=== PATIENT | female | born 1965 | race American Indian/Alaskan Native ===

== ENCOUNTER 2017-01-06 12:14 | Emergency (ER) | payer SELFPAY ==
--- NOTE | 2017-01-06 16:22 | Emergency Department Report ---
HPI - General Chief Complaint: Skin/Abscess/Foreign Body Time Seen by Provider: 01/06/17 15:29 - HPI HPI: 51-year-old female presents today with multiple boils to her pulse ox 3 days. Positive for history of hidradenitis to pretty well and abscesses. Positive for drainage. Patient states that she has had multiple boils of her axillary region and buttocks, she is now complaining of hard boil of her right buttock. Positive for pain, rated as a 10 out of 10. Positive for pruritus. Patient states she is unable to sit properly due to pain. Patient had Surgery in the past without complete resolution. She states she needs to be put on antibiotics and wants a referral for surgeon. ED Past Medical Hx - Past Medical History Previous Medical History?: Yes Additional medical history: repeat boils - Surgical History Past Surgical History?: Yes Additional Surgical History: hysterctomy. x 1 - Social History Smoking Status: Current Every Day Smoker Substance Use Type: Alcohol - Medications Home Medications: Home Medications Medication Instructions Recorded Confirmed Last Taken Type Butalbit/Acetamin/Caff/Codeine 1 cap PO Q6HR PRN #20 cap 02/14/16 Unknown Rx [Fioricet/Codeine [id number]] predniSONE [Deltasone] 50 mg PO QDAY #5 tab 02/14/16 Unknown Rx Gabapentin [Neurontin] 300 mg PO BID #30 cap 02/20/16 Unknown Rx predniSONE [Deltasone] 50 mg PO QDAY #5 tab 02/20/16 Unknown Rx Acetaminophen/Codeine [Tylenol #3] 1 tab PO Q6H PRN #14 tab 01/06/17 Unknown Rx Cephalexin [Keflex] 500 mg PO Q6HR #28 capsule 01/06/17 Unknown Rx Sulfamethoxazole/Trimethoprim 1 each PO BID #14 tablet 01/06/17 Unknown Rx [Bactrim DS TAB] ED Review of Systems ROS: Stated complaint: SEVERAL SEVERE BOILS ON BUTTOCKS /PAIN Other details as noted in HPI Constitutional: denies: chills, fever, malaise Eyes: denies: eye pain ENT: denies: ear pain, throat pain, congestion Respiratory: denies: cough, shortness of breath, wheezing Cardiovascular: denies: chest pain, palpitations Endocrine: no symptoms reported Gastrointestinal: denies: abdominal pain, nausea, vomiting Neurological: denies: headache, weakness Physical Exam - Physical Exam Vital Signs: Vital Signs 01/06/17 12:20 Temperature 98.4 F Pulse Rate 76 Respiratory 18 Rate Blood Pressure 195/90 O2 Sat by Pulse 100 Oximetry Physical Exam: GENERAL: The patient is well-developed and well-nourished. Patient is in NAD. HEAD: Normocephalic. Atraumatic. CHEST/LUNGS: Clear to auscultation throughout. HEART/CARDIOVASCULAR: Regular rate and rhythm. No murmurs, rubs or gallops. ABDOMEN: Abdomen is soft, nontender. Bowel sounds normoactive. No guarding or rebound tenderness. EXTREMITIES: Peripheral pulses intact. Capillary refill less than 2 seconds. SKIN: 5 cm in diameter, tender to touch, indurated, nonfluctuant abscess noted over the right buttock. Positive for minimal drainage. NEURO: Alert and oriented x 3. Normal gait. ED Course Vital Signs 01/06/17 12:20 Temperature 98.4 F Pulse Rate 76 Respiratory 18 Rate Blood Pressure 195/90 O2 Sat by Pulse 100 Oximetry ED Medical Decision Making - Lab Data Vital Signs 01/06/17 01/06/17 12:20 16:30 Temperature 98.4 F Pulse Rate 76 65 Respiratory 18 18 Rate Blood Pressure 195/90 Blood Pressure 163/75 [Left] O2 Sat by Pulse 100 99 Oximetry - Medical Decision Making 51-year-old female presents today with an abscess to her buttock that is currently draining. Patient has been provided with a referral for surgeon. Patient is in no acute distress at this time. She will be discharged home and is encouraged to follow up with a primary care provider. She will be sent home on Bactrim, Keflex and Tylenol 3 and is encouraged to return to the emergency room for any worsening symptoms. Critical care attestation.: If time is entered above; I have spent that time in minutes in the direct care of this critically ill patient, excluding procedure time. ED Disposition Clinical Impression: Abscess of buttock Disposition: DISCHARGED TO HOME OR SELFCARE Is pt being admited?: No Does the pt Need Aspirin: No Condition: Stable Instructions: Abscess (ED) Additional Instructions: Follow-up with primary care provider and surgeon. Return to the emergency department if symptoms worsen. Prescriptions: Acetaminophen/Codeine [Tylenol #3] 1 tab PO Q6H PRN #14 tab PRN Reason: Pain Cephalexin [Keflex] 500 mg PO Q6HR #28 capsule Sulfamethoxazole/Trimethoprim [Bactrim DS TAB] 1 each PO BID #14 tablet Referrals: PRIMARY CAREMD [Primary Care Provider] - 3-5 Days LAYO RUFF MD [Staff Physician] - 3-5 Days [facility] [Outside] - 3-5 Days Forms: Work/School Release Form(ED) Time of Disposition: 16:32
[2017-01-06 16:31] VITALS: BP 163/75
== END 2017-01-06 16:53 | disposition home or self-care (01) ==
LOC: ED 12:14
DX: L02.31 Cutaneous abscess of buttock (principal); F17.200 Nicotine dependence, unspecified, uncomplicated
CPT/HCPCS: 99282

== ENCOUNTER 2017-01-30 12:13 | Emergency (ER) | payer SELFPAY ==
[2017-01-30 12:47] VITALS: BP 155/82
[2017-01-30] MEDS ORDERED: CLEOCIN IM ONE (15:43)
--- NOTE | 2017-01-30 15:51 | Emergency Department Report ---
ED General Adult HPI - General Chief complaint: Skin/Abscess/Foreign Body Stated complaint: BOILS ON BUTTOCKS Time Seen by Provider: 01/30/17 15:30 Source: patient Mode of arrival: Ambulatory Limitations: No Limitations - History of Present Illness Initial comments: PT comes into ED today asking for medication refill of Bactrim and Keflex. PT states she has a hx of Hidradenitis and the sores on her buttocks have been draining again. PT states when she took the antibiotics last month, the area dried up and was less painful. PT states that she is starting a new job on Thursday and after 90 days, she will have health insurance and be able to see a surgeon for further treatment. PT states she had surgery to both underarms about 10 years ago. MD Complaint: abscess -: Gradual, week(s) Location: buttocks Radiation: non-radiation Severity scale (0 -10): 10 Quality: constant Consistency: constant Improves with: medication (antibiotics ) Worsens with: movement, other (palpation ) Associated Symptoms: fever/chills, rash. denies: nausea/vomiting Treatments Prior to Arrival: NSAID - Related Data Previous Rx's Medication Instructions Recorded Last Taken Type Acetaminophen/Codeine [Tylenol #3] 1 tab PO Q6H PRN #12 tab 01/30/17 Unknown Rx Cephalexin [Keflex] 500 mg PO Q6HR #40 capsule 01/30/17 Unknown Rx Fluconazole [Diflucan TAB] 150 mg PO ONCE #1 tablet 01/30/17 Unknown Rx Sulfamethoxazole/Trimethoprim 1 each PO BID #20 tablet 01/30/17 Unknown Rx [Bactrim DS TAB] Allergies Allergy/AdvReac Type Severity Reaction Status Date / Time No Known Allergies Allergy Unverified 02/14/16 15:34 ED Review of Systems ROS: Stated complaint: BOILS ON BUTTOCKS Other details as noted in HPI Comment: All other systems reviewed and negative Constitutional: fever (subjective ). denies: chills Cardiovascular: denies: chest pain Gastrointestinal: denies: abdominal pain, nausea, vomiting Musculoskeletal: as per HPI Skin: as per HPI, rash, change in color (drainage ) ED Past Medical Hx - Past Medical History Previous Medical History?: No Additional medical history: repeat boils - Surgical History Past Surgical History?: Yes Additional Surgical History: hysterctomy. x 1 - Social History Smoking Status: Unknown if ever smoked Substance Use Type: None - Medications Home Medications: Home Medications Medication Instructions Recorded Confirmed Last Taken Type Acetaminophen/Codeine [Tylenol #3] 1 tab PO Q6H PRN #12 tab 01/30/17 Unknown Rx Cephalexin [Keflex] 500 mg PO Q6HR #40 capsule 01/30/17 Unknown Rx Fluconazole [Diflucan TAB] 150 mg PO ONCE #1 tablet 01/30/17 Unknown Rx Sulfamethoxazole/Trimethoprim 1 each PO BID #20 tablet 01/30/17 Unknown Rx [Bactrim DS TAB] ED Physical Exam - General Limitations: No Limitations General appearance: alert, in no apparent distress - Head Head exam: Present: atraumatic, normocephalic - Eye Eye exam: Present: normal appearance. Absent: conjunctival injection - ENT ENT exam: Present: normal exam, normal external ear exam - Neck Neck exam: Present: normal inspection, full ROM - Respiratory Respiratory exam: Present: normal lung sounds bilaterally. Absent: respiratory distress - Cardiovascular Cardiovascular Exam: Present: regular rate, normal rhythm - GI/Abdominal GI/Abdominal exam: Present: soft. Absent: tenderness - Extremities Exam Extremities exam: Present: normal inspection, full ROM - Back Exam Back exam: Present: normal inspection, full ROM. Absent: tenderness - Neurological Exam Neurological exam: Present: alert, oriented X3 - Psychiatric Psychiatric exam: Present: normal affect, normal mood - Skin Skin exam: Present: warm, dry, other (derick buttocks with hidradenitis R>L. If R buttocks is palpated, multiple sites will drain, drainage collected for wound culture ) ED Course Vital Signs 01/30/17 12:44 Temperature 98.3 F Pulse Rate 74 Respiratory 18 Rate Blood Pressure 155/82 O2 Sat by Pulse 95 Oximetry - Reevaluation(s) Reevaluation #1: 01/30/17 15:46 PT aware of plan of care. PT has no questions at this time. PT aware no driving or ETOH after taking tylenol #3. PT aware safe dose of Naprosyn to take. - Pulse Oximetry Interpretation Digit-Finger Initial Pulse Oximetry Readin Actions Taken: none ED Medical Decision Making - Differential Diagnosis abscess, cellulitis, hidradenitis Critical Care Time: No Critical care attestation.: If time is entered above; I have spent that time in minutes in the direct care of this critically ill patient, excluding procedure time. ED Disposition Clinical Impression: Hidradenitis Disposition: DISCHARGED TO HOME OR SELFCARE Is pt being admited?: No Does the pt Need Aspirin: No Condition: Stable Instructions: Cellulitis (ED), Abscess (ED) Additional Instructions: No driving or ETOH after Tylenol with Codeine Referrals: PRIMARY CAREMD [Primary Care Provider] - 3-5 Days FLAKITO STEVENSON MD [Staff Physician] - 3-5 Days Forms: Work/School Release Form(ED) Time of Disposition: 15:53
== END 2017-01-30 16:04 | disposition home or self-care (01) ==
LOC: ED 12:13
DX: L73.2 Hidradenitis suppurativa (principal); Z90.710 Acquired absence of both cervix and uterus
CPT/HCPCS: 87116; 96372

== ENCOUNTER 2017-12-07 17:24 | Emergency (ER) | payer OTHER ==
[2017-12-07 18:33] LABS: Basophils # (Auto) 0.1 K/mm3 (0.0-0.1); Basophils % (Auto) 0.8 % (0.0-1.8); Eosinophils # (Auto) 0.4 K/mm3 (0.0-0.4); Eosinophils % (Auto) 4.5 % (0.0-4.3); Hematocrit 39.7 % (30.3-42.9); Lymphocytes # (Auto) 4.3 K/mm3 (1.2-5.4); Lymphocytes % (Auto) 43.6 % (13.4-35.0); Mean Corpuscular HGB Conc 33 % (30-34); Mean Corpuscular Hemoglobin 31 pg (28-32); Mean Corpuscular Volume 94 fl (79-97); Monocytes # (Auto) 0.4 K/mm3 (0.0-0.8); Monocytes % (Auto) 4.3 % (0.0-7.3); Platelet Count 315 K/mm3 (140-440); Red Cell Distribution Width 13.7 % (13.2-15.2)
[2017-12-07 19:17] LABS: BUN/Creatinine Ratio 20; Blood Urea Nitrogen 12 mg/dL (7-17); Calcium 9.1 mg/dL (8.4-10.2); Hemolysis Index 81
[2017-12-07 20:50] VITALS: BP 178/74
[2017-12-07 21:02] LABS: Bacteria,Urine 1+ /HPF (Negative); Bilirubin,Urine NEG (Negative); Blood,Urine NEG (Negative); Color,Urine Yellow (Yellow); Mucus,Urine FEW /HPF; Nitrite,Urine NEG (Negative); Protein,Urine <15 mg/dL mg/dL (Negative)
--- NOTE | 2017-12-07 21:11 | Emergency Department Report ---
ED Recheck HPI - General Chief Complaint: High BP Stated Complaint: HIGH BP Time Seen by Provider: 12/07/17 21:01 Source: patient Mode of arrival: Ambulatory Limitations: No Limitations - History of Present Illness Initial Comments: This is a 52-year-old female nontoxic, well nourished in appearance, no acute signs of distress presents to the ED with c/o of high blood pressure. Patient stated she develops intermittent headaches and takes her blood pressure and is elevated. Patient denies history of high blood pressure. Patient currently in the ED denies any headaches or symptoms. Patient stated when she does develop headache it is a gradual onset and diffuse. Patient denies thunderclap headache or worst headache. Patient denies any blurry vision or visual changes. Patient stated she is asymptomatic. Patient denies any chest pain, shortness of breathe , fever, chills, headache, nausea, vomiting, numbness, tingling, abdominal pain. Patient denies any allergies. Denies significant PMH. MD Complaint: medication refill request Returns Today for: request for prescription Symptoms Since Prior Visit: no new symptoms Associated Symptoms: none. denies: fever, chills, chest pain, shortness of breath, rash, malaise, nasuea, abdominal pain - Related Data Previous Rx's Medication Instructions Recorded Last Taken Type Acetaminophen/Codeine [Tylenol #3] 1 tab PO Q6H PRN #12 tab 01/30/17 Unknown Rx Cephalexin [Keflex] 500 mg PO Q6HR #40 capsule 01/30/17 Unknown Rx Fluconazole [Diflucan TAB] 150 mg PO ONCE #1 tablet 01/30/17 Unknown Rx Sulfamethoxazole/Trimethoprim 1 each PO BID #20 tablet 01/30/17 Unknown Rx [Bactrim DS TAB] Amlodipine Besylate [Norvasc] 5 mg PO DAILY #30 tablet 12/07/17 Unknown Rx Allergies Allergy/AdvReac Type Severity Reaction Status Date / Time No Known Allergies Allergy Unverified 02/14/16 15:34 ED Review of Systems ROS: Stated complaint: HIGH BP Other details as noted in HPI Constitutional: denies: chills, fever Eyes: denies: eye pain, eye discharge, vision change ENT: denies: ear pain, throat pain Respiratory: denies: cough, shortness of breath, wheezing Cardiovascular: denies: chest pain, palpitations Endocrine: no symptoms reported Gastrointestinal: denies: abdominal pain, nausea, diarrhea Genitourinary: denies: urgency, dysuria, discharge Musculoskeletal: denies: back pain, joint swelling, arthralgia Skin: denies: rash, lesions Neurological: denies: headache, weakness, paresthesias Psychiatric: denies: anxiety, depression Hematological/Lymphatic: denies: easy bleeding, easy bruising ED Past Medical Hx - Past Medical History Previous Medical History?: Yes Additional medical history: repeat boils - Surgical History Past Surgical History?: Yes Additional Surgical History: hysterctomy. x 1 - Social History Smoking Status: Current Every Day Smoker Substance Use Type: Alcohol, Marijuana - Medications Home Medications: Home Medications Medication Instructions Recorded Confirmed Last Taken Type Acetaminophen/Codeine [Tylenol #3] 1 tab PO Q6H PRN #12 tab 01/30/17 Unknown Rx Cephalexin [Keflex] 500 mg PO Q6HR #40 capsule 01/30/17 Unknown Rx Fluconazole [Diflucan TAB] 150 mg PO ONCE #1 tablet 01/30/17 Unknown Rx Sulfamethoxazole/Trimethoprim 1 each PO BID #20 tablet 01/30/17 Unknown Rx [Bactrim DS TAB] Amlodipine Besylate [Norvasc] 5 mg PO DAILY #30 tablet 12/07/17 Unknown Rx ED Physical Exam - General Limitations: No Limitations General appearance: alert, in no apparent distress - Head Head exam: Present: atraumatic, normocephalic - Eye Eye exam: Present: normal appearance, PERRL, EOMI Pupils: Present: normal accommodation - ENT ENT exam: Present: normal exam, mucous membranes moist - Neck Neck exam: Present: normal inspection, full ROM. Absent: tenderness, meningismus, lymphadenopathy, thyromegaly - Respiratory Respiratory exam: Present: normal lung sounds bilaterally. Absent: respiratory distress, wheezes, rales, rhonchi, stridor, chest wall tenderness, accessory muscle use, decreased breath sounds, prolonged expiratory - Cardiovascular Cardiovascular Exam: Present: regular rate, normal rhythm, normal heart sounds. Absent: irregular rhythm, systolic murmur, diastolic murmur, rubs, gallop - GI/Abdominal GI/Abdominal exam: Present: soft, normal bowel sounds. Absent: distended, tenderness, guarding, rebound, rigid, diminished bowel sounds - Rectal Rectal exam: Present: deferred - Extremities Exam Extremities exam: Present: normal inspection - Back Exam Back exam: Present: normal inspection, full ROM. Absent: tenderness, CVA tenderness (R), CVA tenderness (L), muscle spasm, paraspinal tenderness, vertebral tenderness, rash noted - Neurological Exam Neurological exam: Present: alert, oriented X3, CN II-XII intact, normal gait, reflexes normal - Expanded Neurological Exam Expanded Patient oriented to: Present: person, place, time Cranial nerves: EOM's Intact: Normal, Gag Reflex: Normal, Tongue Deviation: Normal, Nystagmus: Normal, Facial Sensation: Normal, Facial Palsy with Forehead Movement: Normal, Facial Palsy without Forehead Movement: Normal Cerebellar function: Finger to Nose: Normal, Heel to Rich: Normal, Romberg: Normal Upper motor neuron: Brendon Neglect: Normal, Pronator Drift: Normal, Babinski Sign : Normal, Sensory Extinction: Normal Sensory exam: Upper Extremity Light Touch: Normal, Upper Extremity Pin Prick: Normal, Upper Extremity Temperature: Normal, UE 2 Point Discrimination: Normal, Lower Extremity Light Touch: Normal, Lower Extremity Pin Prick: Normal, Lower Extremity Temperature: Normal, LE 2 Point Discrimination: Normal Motor strength exam: RUE: 5, LUE: 5, RLE: 5, LLE: 5 DTR: bicep (R): 2+, bicep (L): 2+, tricep (R): 2+, tricep (L): 2+, knee (R): 2+ , knee (L): 2+, ankle (R): 2+, ankle (L): 2+ Best Eye Response (Brandee): (4) open spontaneously Best Motor Response (Brandee): (6) obeys commands Best Verbal Response (Brandee): (5) oriented [place] Total: 15 - Psychiatric Psychiatric exam: Present: normal affect, normal mood - Skin Skin exam: Present: warm, dry, intact, normal color. Absent: rash ED Course Vital Signs 12/07/17 12/07/17 18:06 20:50 Temperature 97.8 F 98.0 F Pulse Rate 49 L 59 L Respiratory 20 16 Rate Blood Pressure 177/85 Blood Pressure 178/74 [Right] O2 Sat by Pulse 100 100 Oximetry - Reevaluation(s) Reevaluation #1: 12/07/17 21:20 Patient is speaking in full sentences with no signs of distress noted. ED Recheck MDM - Medical Decision Making This is a 52-year-old female that presents with hypertension. Patient is stable and was examined by me. Patient is neurologically stable. Labs within normal limits. Patient currently in the ED denies any headaches or any symptoms. Patient received a dose of Norvasc in the ED. I will start outpatient treatment with amlodipine 5 mg daily. Patient was strictly educated and instructed on hypertension and side effects such as brain aneurysms. Patient was instructed to follow up with a primary care doctor in 3-5 days or if symptoms should service severe uncontrollable headache, blurry vision, weakness, chest pain, shortness of breath, or any abnormal symptoms to return to emergency room as soon as possible. At time of discharge, the patient does not seem toxic or ill in appearance. No acute signs of distress noted. Patient agrees to discharge treatment plan of care. No further questions noted by the patient. Critical care attestation.: If time is entered above; I have spent that time in minutes in the direct care of this critically ill patient, excluding procedure time. ED Disposition Clinical Impression: Hypertension Qualifiers: Hypertension type: unspecified Qualified Code(s): I10 - Essential (primary) hypertension Disposition: DC-01 TO HOME OR SELFCARE Is pt being admited?: No Does the pt Need Aspirin: No Condition: Stable Instructions: Amlodipine (By mouth), Hypertension (ED) Additional Instructions: Follow-up with a primary care doctor in 3-5 days or if symptoms should service severe uncontrollable headache, blurry vision, weakness, chest pain, shortness of breath, or any abnormal symptoms to return to emergency room as soon as possible. Keep a daily dairy of your blood pressure and present it to your primary care doctor. Prescriptions: Amlodipine Besylate [Norvasc] 5 mg PO DAILY #30 tablet Referrals: PRIMARY CARE, [Primary Care Provider] - 3-5 Days BASILIO FIGUEROA MD [Staff Physician] - 3-5 Days [facility] [Outside] - 3-5 Days [facility] [Outside] - 3-5 Days Forms: Work/School Release Form(ED)
[2017-12-07] MEDS ORDERED: NORVASC PO ONE (21:24)
== END 2017-12-07 21:40 | disposition home or self-care (01) ==
LOC: ED 17:24
DX: I10 Essential (primary) hypertension (principal); F17.200 Nicotine dependence, unspecified, uncomplicated; F12.10 Cannabis abuse, uncomplicated
CPT/HCPCS: 36415; 80048; 81001; 85025; 99283

== ENCOUNTER 2018-06-02 17:26 | Emergency (ER) | payer OTHER ==
[2018-06-02 17:38] VITALS: BP 148/77
--- NOTE | 2018-06-02 19:24 | Emergency Department Report ---
Abscess Boil HPI - HPI Chief Complaint: Skin/Abscess/Foreign Body Stated Complaint: SWOLLEN MOUTH Time Seen by Provider: 06/02/18 19:23 Duration: >1 Week Location: Other ([place]) Severity: Mild (3-year-old -[place] female, complaining of an abscess to the left lower chin times one week.) History: Yes Pain, No Fever, No Purulent Drainage, No Numbness, No Foreign Body , No Previous History, No Insect Bite Home Medications: Previous Rx's Medication Instructions Recorded Last Taken Type Acetaminophen/Codeine [Tylenol #3] 1 tab PO Q6H PRN #12 tab 01/30/17 Unknown Rx Sulfamethoxazole/Trimethoprim 1 each PO BID #20 tablet 01/30/17 Unknown Rx [Bactrim DS TAB] Amlodipine Besylate [Norvasc] 5 mg PO DAILY #30 tablet 12/07/17 Unknown Rx Cephalexin [Keflex] 500 mg PO Q6HR #40 capsule 06/02/18 Unknown Rx Fluconazole [Diflucan TAB] 150 mg PO ONCE #1 tablet 06/02/18 Unknown Rx Ibuprofen [Motrin 600 MG tab] 600 mg PO Q8H PRN #15 tablet 06/02/18 Unknown Rx Allergies/Adverse Reactions: Allergies Allergy/AdvReac Type Severity Reaction Status Date / Time No Known Allergies Allergy Unverified 02/14/16 15:34 ED Review of Systems ROS: Stated complaint: SWOLLEN MOUTH Other details as noted in HPI Skin: lesions (left chin swelling) ED Past Medical Hx - Past Medical History Previous Medical History?: No Additional medical history: repeat boils - Surgical History Additional Surgical History: hysterctomy. x 1 - Social History Smoking Status: Current Every Day Smoker Substance Use Type: Alcohol - Medications Home Medications: Home Medications Medication Instructions Recorded Confirmed Last Taken Type Acetaminophen/Codeine [Tylenol #3] 1 tab PO Q6H PRN #12 tab 01/30/17 Unknown Rx Sulfamethoxazole/Trimethoprim 1 each PO BID #20 tablet 01/30/17 Unknown Rx [Bactrim DS TAB] Amlodipine Besylate [Norvasc] 5 mg PO DAILY #30 tablet 12/07/17 Unknown Rx Cephalexin [Keflex] 500 mg PO Q6HR #40 capsule 06/02/18 Unknown Rx Fluconazole [Diflucan TAB] 150 mg PO ONCE #1 tablet 06/02/18 Unknown Rx Ibuprofen [Motrin 600 MG tab] 600 mg PO Q8H PRN #15 tablet 06/02/18 Unknown Rx ED Abscess Boil Physical Exam - Exam General: Vital signs noted. No distress. Alert and acting appropriately. Size: 2 cm Exam: Yes Tenderness, Yes Normal Neurologic Exam, Yes Normal Circulation, No Fluctuance, No Surrounding Cellulites/Erythema, No Lymphangitis, No Crepitation , No Heart Murmur ED Course Vital Signs 06/02/18 17:34 Temperature 98.7 F Pulse Rate 88 Respiratory 17 Rate Blood Pressure 148/77 O2 Sat by Pulse 98 Oximetry Critical care attestation.: If time is entered above; I have spent that time in minutes in the direct care of this critically ill patient, excluding procedure time. ED Medical Decision Making - Medical Decision Making Patient has been evaluated by this provider fast track. Discussed the patient IS on antibiotics. Discussed patient I will place her on antibiotics His symptoms persist or gets worse she should follow up with [place] ED Disposition Clinical Impression: Abscess Disposition: DC- TO HOME OR SELFCARE Is pt being admited?: No Does the pt Need Aspirin: No Condition: Stable Instructions: Abscess (ED) Additional Instructions: Complete antibiotics as prescribed. Pain medication as needed. If symptoms persist or gets worse please follow-up with her [place] provider. Prescriptions: Cephalexin [Keflex] 500 mg PO Q6HR #40 capsule Fluconazole [Diflucan TAB] 150 mg PO ONCE #1 tablet Ibuprofen [Motrin 600 MG tab] 600 mg PO Q8H PRN #15 tablet PRN Reason: Pain Referrals: PRIMARY CARE [Primary Care Provider] - 3-5 Days [facility] [Provider Group] - 3-5 Days Forms: Work/School Release Form(ED)
== END 2018-06-02 20:08 | disposition home or self-care (01) ==
LOC: ED 17:26
DX: L02.01 Cutaneous abscess of face (principal); F17.200 Nicotine dependence, unspecified, uncomplicated; Z90.710 Acquired absence of both cervix and uterus
CPT/HCPCS: 99282

== ENCOUNTER 2019-07-12 16:44 | Emergency (ER) | payer SELFPAY ==
[2019-07-12 17:08] VITALS: BP 165/82
--- NOTE | 2019-07-12 17:28 | Event Note ---
ED Screening Note Date of service: 07/12/19 Time: 17:24 ED Screening Note: This is a 54 y.o. F. that presents to the ER with lower abdominal pain and vaginal discharge x 2 weeks Monistat last week w/o improvement of symptoms + vaginal discharge, pelvic pain, dysuria, pruritus - urinary frequency, urgency, vaginal bleeding, or back pain This initial assessment/diagnostic orders/clinical plan/treatment(s) is/are subject to change based on patients health status, clinical progression and re- assessment by fellow clinical providers in the ED. Further treatment and workup at subsequent clinical providers discretion. Patient/guardian urged not to elope from the ED as their condition may be serious if not clinically assessed and managed. Initial orders include: UA and wet prep
[2019-07-12 19:07] LABS: Bacteria,Urine 1+ /HPF (Negative); Bilirubin,Urine NEG (Negative); Blood,Urine NEG (Negative); Color,Urine Yellow (Yellow); Mucus,Urine 2+ /HPF
[2019-07-12] MEDS ORDERED: IBUPROFEN PO ONE (20:16)
[2019-07-12] MEDS ORDERED: MACROBID PO ONE (20:16)
--- NOTE | 2019-07-12 22:41 | Emergency Department Report ---
ED Female HPI - General Chief complaint: Abdominal Pain Stated complaint: ABD PAIN EXTREME Time Seen by Provider: 07/12/19 17:24 Source: patient Mode of arrival: Ambulatory Limitations: No Limitations - History of Present Illness Initial comments: There is a 54-year-old -[place] female who presents for urinary frequency urgency and dysuria 3 days no chills no nausea vomiting no vaginal discharge no vaginal bleeding the last menstrual cycle : Postmenopausal MD Complaint: dysuria Onset/Timin -: days(s) Radiation: suprapubic Severity: moderate Severity scale (0 -10): 4 Quality: burning Consistency: intermittent Improves with: none Worsens with: urination Are you Now?: No Associated Symptoms: dysuria. denies: vaginal discharge, vaginal bleeding - Related Data Sexually active: No Previous Rx's Medication Instructions Recorded Last Taken Type Acetaminophen/Codeine [Tylenol #3] 1 tab PO Q6H PRN #12 tab 01/30/17 Unknown Rx Sulfamethoxazole/Trimethoprim 1 each PO BID #20 tablet 01/30/17 Unknown Rx [Bactrim DS TAB] Amlodipine Besylate [Norvasc] 5 mg PO DAILY #30 tablet 12/07/17 Unknown Rx Fluconazole [Diflucan TAB] 150 mg PO ONCE #1 tablet 06/02/18 Unknown Rx Ibuprofen [Motrin 600 MG tab] 600 mg PO Q8H PRN #15 tablet 06/02/18 Unknown Rx cephALEXin [Keflex] 500 mg PO Q6HR #40 capsule 06/02/18 Unknown Rx Ibuprofen [Motrin 800 MG tab] 800 mg PO Q8HR PRN #30 tablet 07/12/19 Unknown Rx Nitrofurantoin [place]/M-Cryst 100 mg PO BID 7 Days #14 capsule 07/12/19 Unknown Rx [Macrobid CAP] metroNIDAZOLE [Flagyl] 500 mg PO BID 7 Days #14 tab 07/12/19 Unknown Rx Allergies Allergy/AdvReac Type Severity Reaction Status Date / Time No Known Allergies Allergy Unverified 02/14/16 15:34 ED Review of Systems ROS: Stated complaint: ABD PAIN EXTREME Other details as noted in HPI Constitutional: denies: chills, fever Eyes: denies: eye pain, eye discharge, vision change ENT: denies: ear pain, throat pain Respiratory: denies: cough, shortness of breath, wheezing Cardiovascular: denies: chest pain, palpitations Endocrine: no symptoms reported Gastrointestinal: denies: abdominal pain, nausea, diarrhea Genitourinary: urgency, dysuria, frequency. denies: hematuria, discharge, abnormal menses, dyspareunia Musculoskeletal: denies: back pain, joint swelling, arthralgia Skin: denies: rash, lesions Neurological: denies: headache, weakness, paresthesias Psychiatric: denies: anxiety, depression Hematological/Lymphatic: denies: easy bleeding, easy bruising ED Past Medical Hx - Past Medical History Additional medical history: repeat boils - Surgical History Additional Surgical History: hysterctomy. x 1 - Social History Smoking Status: Current Every Day Smoker Substance Use Type: Alcohol - Medications Home Medications: Home Medications Medication Instructions Recorded Confirmed Last Taken Type Acetaminophen/Codeine [Tylenol #3] 1 tab PO Q6H PRN #12 tab 01/30/17 Unknown Rx Sulfamethoxazole/Trimethoprim 1 each PO BID #20 tablet 01/30/17 Unknown Rx [Bactrim DS TAB] Amlodipine Besylate [Norvasc] 5 mg PO DAILY #30 tablet 12/07/17 Unknown Rx Fluconazole [Diflucan TAB] 150 mg PO ONCE #1 tablet 06/02/18 Unknown Rx Ibuprofen [Motrin 600 MG tab] 600 mg PO Q8H PRN #15 tablet 06/02/18 Unknown Rx cephALEXin [Keflex] 500 mg PO Q6HR #40 capsule 06/02/18 Unknown Rx Ibuprofen [Motrin 800 MG tab] 800 mg PO Q8HR PRN #30 tablet 07/12/19 Unknown Rx Nitrofurantoin [place]/M-Cryst 100 mg PO BID 7 Days #14 capsule 07/12/19 Unknown Rx [Macrobid CAP] metroNIDAZOLE [Flagyl] 500 mg PO BID 7 Days #14 tab 07/12/19 Unknown Rx ED Physical Exam - General Limitations: No Limitations General appearance: alert, in no apparent distress - Head Head exam: Present: atraumatic, normocephalic - Eye Eye exam: Present: normal appearance, PERRL, EOMI Pupils: Present: normal accommodation - ENT ENT exam: Present: mucous membranes moist - Neck Neck exam: Present: normal inspection, full ROM. Absent: tenderness, lymphadenopathy - Respiratory Respiratory exam: Present: normal lung sounds bilaterally. Absent: respiratory distress, wheezes, stridor, chest wall tenderness - Cardiovascular Cardiovascular Exam: Present: regular rate, normal rhythm, normal heart sounds. Absent: systolic murmur, diastolic murmur, rubs, gallop - GI/Abdominal GI/Abdominal exam: Present: soft, normal bowel sounds. Absent: distended, tenderness, guarding, rebound, rigid, bruit, hernia - Rectal Rectal exam: Present: deferred - External exam: Present: other (exam deferred per patient ) - Extremities Exam Extremities exam: Present: normal inspection, full ROM, normal capillary refill. Absent: tenderness - Back Exam Back exam: Present: normal inspection, full ROM. Absent: tenderness, CVA tenderness (R), CVA tenderness (L), muscle spasm, paraspinal tenderness, vertebral tenderness, rash noted - Neurological Exam Neurological exam: Present: alert, oriented X3, CN II-XII intact - Psychiatric Psychiatric exam: Present: normal affect, normal mood - Skin Skin exam: Present: warm, dry, intact, normal color. Absent: rash ED Course Vital Signs 07/12/19 07/12/19 07/12/19 17:04 20:29 22:47 Temperature 98.1 F Pulse Rate 61 65 Respiratory 18 16 16 Rate Blood Pressure 165/82 O2 Sat by Pulse 98 97 Oximetry ED Medical Decision Making - Lab Data Labs 07/12/19 18:04 Urine Color Yellow Urine Turbidity Cloudy Urine pH 5.0 Ur Specific [place] 1.031 H Urine Protein 30 mg/dl Urine Glucose (UA) Neg Urine Ketones Neg Urine Blood Neg Urine Nitrite Neg Urine Bilirubin Neg Urine Urobilinogen 2.0 Ur Leukocyte Esterase Lg Urine WBC (Auto) 6.0 Urine RBC (Auto) 10.0 U Epithel Cells (Auto) 17.0 H Urine Bacteria (Auto) 1+ Urine Mucus 2+ - Medical Decision Making this is a UTI plan, macrobid , ibuprofen, follow up with pcp in 2-3 days return to emergency if symptoms worsen. Critical care attestation.: If time is entered above; I have spent that time in minutes in the direct care of this critically ill patient, excluding procedure time. ED Disposition Clinical Impression: BV (bacterial vaginosis) UTI (urinary tract infection) Qualifiers: Urinary tract infection type: acute cystitis Hematuria presence: without hematuria Qualified Code(s): N30.00 - Acute cystitis without hematuria Disposition: TO HOME OR SELFCARE Is pt being admited?: No Does the pt Need Aspirin: No Condition: Stable Instructions: Urinary Tract Infection in Women (ED), Bacterial Vaginosis (ED) Prescriptions: metroNIDAZOLE [Flagyl] 500 mg PO BID 7 Days #14 tab Nitrofurantoin [place]/M-Cryst [Macrobid CAP] 100 mg PO BID 7 Days #14 capsule Ibuprofen [Motrin 800 MG tab] 800 mg PO Q8HR PRN #30 tablet PRN Reason: pain and fever Referrals: [facility] [Outside] - 3-5 Days Forms: Work/School Release Form(ED), STI Treatment and Prevention Time of Disposition: 22:45
[2019-07-12] MEDS ORDERED: ZITHROMAX PO ONE (23:16)
[2019-07-12] MEDS ORDERED: XYLOCAINE 1% MPF 5 mL INFILTRATI ONE (23:16)
[2019-07-12] MEDS ORDERED: ROCEPHIN IM ONE (23:16)
== END 2019-07-12 23:40 | disposition home or self-care (01) ==
LOC: ED 16:44
DX: N39.0 Urinary tract infection, site not specified (principal); N76.0 Acute vaginitis; F17.200 Nicotine dependence, unspecified, uncomplicated
CPT/HCPCS: 81001; J0696; 96372

== ENCOUNTER 2019-09-01 17:24 | Emergency (ER) | payer SELFPAY ==
--- NOTE | 2019-09-01 18:45 | Emergency Department Report ---
Blank Doc - Documentation Documentation: 54-year-old female that presents with right flank pain. Stated has not taken Macrobid that was prescribed last month for UTI. This initial assessment/diagnostic orders/clinical plan/treatment(s) is/are subject to change based on patient's health status, clinical progression and re- assessment by fellow clinical providers in the ED. Further treatment and workup at subsequent clinical providers discretion. Patient/guardians urged not to elope from the ED as their condition may be serious if not clinically assessed and managed. Initial orders include: 1- Patient sent to [facility] for further evaluation and treatment 2- UA
[2019-09-01 21:01] LABS: Bacteria,Urine 1+ /HPF (Negative); Bilirubin,Urine NEG (Negative); Blood,Urine NEG (Negative); Color,Urine Amber (Yellow); Mucus,Urine 3+ /HPF
[2019-09-01] MEDS ORDERED: KETOROLAC 30 MG/1 ML INJ IM ONE (21:15)
--- NOTE | 2019-09-01 21:21 | Emergency Department Report ---
ED Abdominal Pain HPI - General Chief Complaint: Abdominal Pain Stated Complaint: KIDNEY PAIN/UTI Time Seen by Provider: 09/01/19 18:45 Source: patient Mode of arrival: Ambulatory Limitations: No Limitations - History of Present Illness Initial Comments: Ms. Whitfield is a 54 y/o aaf who presents for recurrent dysuria , scant hematuria, tx for UTI 1 month ago. States symptoms got better but returned. States she did not complete abx and did not follow up with pcp as she could not afford to. pt denies fever or chills, does confirm flank pain radiating to superpubic with intermittent spasm: 02/02. MD Complaint: flank pain Onset/Timin -: week(s) Location: R flank Radiation: suprapubic Migration to: suprapubic Severity: moderate Severity scale (0 -10): 4 Quality: aching, sharp Consistency: intermittent Improves With: nothing Worsens With: nothing Associated Symptoms: nausea, dysuria, hematuria. denies: vomiting, diarrhea, fever, chills, hematemesis, hematochezia, melena, anorexia, syncope - Related Data LMP (females 10-50): other (post menopausal) Previous Rx's Medication Instructions Recorded Last Taken Type Acetaminophen/Codeine [Tylenol #3] 1 tab PO Q6H PRN #12 tab 01/30/17 Unknown Rx Sulfamethoxazole/Trimethoprim 1 each PO BID #20 tablet 01/30/17 Unknown Rx [Bactrim DS TAB] Amlodipine Besylate [Norvasc] 5 mg PO DAILY #30 tablet 12/07/17 Unknown Rx Fluconazole [Diflucan TAB] 150 mg PO ONCE #1 tablet 06/02/18 Unknown Rx Ibuprofen [Motrin 600 MG tab] 600 mg PO Q8H PRN #15 tablet 06/02/18 Unknown Rx cephALEXin [Keflex] 500 mg PO Q6HR #40 capsule 06/02/18 Unknown Rx Ibuprofen [Motrin 800 MG tab] 800 mg PO Q8HR PRN #30 tablet 07/12/19 Unknown Rx Nitrofurantoin [place]/M-Cryst 100 mg PO BID 7 Days #14 capsule 07/12/19 Unknown Rx [Macrobid CAP] metroNIDAZOLE [Flagyl] 500 mg PO BID 7 Days #14 tab 07/12/19 Unknown Rx Ciprofloxacin HCl [Ciprofloxacin 500 mg PO BID 7 Days #14 tab 09/01/19 Unknown Rx TAB] Omeprazole 20 mg PO DAILY #30 tab. 09/01/19 Unknown Rx metroNIDAZOLE [Flagyl] 500 mg PO BID 7 Days #14 tab 09/01/19 Unknown Rx Allergies Allergy/AdvReac Type Severity Reaction Status Date / Time No Known Allergies Allergy Unverified 02/14/16 15:34 ED Review of Systems ROS: Stated complaint: KIDNEY PAIN/UTI Other details as noted in HPI Constitutional: denies: chills, fever Eyes: denies: eye pain, eye discharge, vision change ENT: denies: ear pain, throat pain Respiratory: denies: cough, shortness of breath, wheezing Cardiovascular: denies: chest pain, palpitations Endocrine: no symptoms reported Gastrointestinal: denies: abdominal pain, nausea, vomiting, diarrhea Genitourinary: urgency, dysuria, frequency, hematuria. denies: discharge Musculoskeletal: back pain (right flank pain ) Skin: denies: rash, lesions Neurological: denies: headache, weakness, paresthesias Psychiatric: denies: anxiety, depression Hematological/Lymphatic: denies: easy bleeding, easy bruising ED Past Medical Hx - Past Medical History Previous Medical History?: Yes Additional medical history: repeat boils - Surgical History Past Surgical History?: Yes Additional Surgical History: hysterctomy. x 1 - Social History Smoking Status: Current Every Day Smoker Substance Use Type: None - Medications Home Medications: Home Medications Medication Instructions Recorded Confirmed Last Taken Type Acetaminophen/Codeine [Tylenol #3] 1 tab PO Q6H PRN #12 tab 01/30/17 Unknown Rx Sulfamethoxazole/Trimethoprim 1 each PO BID #20 tablet 01/30/17 Unknown Rx [Bactrim DS TAB] Amlodipine Besylate [Norvasc] 5 mg PO DAILY #30 tablet 12/07/17 Unknown Rx Fluconazole [Diflucan TAB] 150 mg PO ONCE #1 tablet 06/02/18 Unknown Rx Ibuprofen [Motrin 600 MG tab] 600 mg PO Q8H PRN #15 tablet 06/02/18 Unknown Rx cephALEXin [Keflex] 500 mg PO Q6HR #40 capsule 06/02/18 Unknown Rx Ibuprofen [Motrin 800 MG tab] 800 mg PO Q8HR PRN #30 tablet 07/12/19 Unknown Rx Nitrofurantoin [place]/M-Cryst 100 mg PO BID 7 Days #14 capsule 07/12/19 Unknown Rx [Macrobid CAP] metroNIDAZOLE [Flagyl] 500 mg PO BID 7 Days #14 tab 07/12/19 Unknown Rx Ciprofloxacin HCl [Ciprofloxacin 500 mg PO BID 7 Days #14 tab 09/01/19 Unknown Rx TAB] Omeprazole 20 mg PO DAILY #30 tab. 09/01/19 Unknown Rx metroNIDAZOLE [Flagyl] 500 mg PO BID 7 Days #14 tab 09/01/19 Unknown Rx ED Physical Exam - General Limitations: No Limitations General appearance: alert, in no apparent distress - Head Head exam: Present: atraumatic, normocephalic - Eye Eye exam: Present: normal appearance, PERRL, EOMI Pupils: Present: normal accommodation - ENT ENT exam: Present: mucous membranes moist - Neck Neck exam: Present: normal inspection - Respiratory Respiratory exam: Present: normal lung sounds bilaterally. Absent: respiratory distress, wheezes, rhonchi - Cardiovascular Cardiovascular Exam: Present: regular rate, normal rhythm, normal heart sounds. Absent: systolic murmur, diastolic murmur, rubs, gallop - GI/Abdominal GI/Abdominal exam: Present: soft, normal bowel sounds. Absent: distended, tenderness, guarding, rebound, rigid, bruit, hernia - Rectal Rectal exam: Present: deferred - Extremities Exam Extremities exam: Present: normal inspection, normal capillary refill - Back Exam Back exam: Present: normal inspection, full ROM, tenderness, CVA tenderness (R). Absent: CVA tenderness (L), rash noted - Neurological Exam Neurological exam: Present: alert, oriented X3, CN II-XII intact, normal gait, reflexes normal. Absent: motor sensory deficit - Psychiatric Psychiatric exam: Present: normal affect, normal mood - Skin Skin exam: Present: warm, dry, intact, normal color. Absent: rash ED Course Vital Signs 09/01/19 18:44 Temperature 98 F Pulse Rate 86 Respiratory 18 Rate Blood Pressure 176/80 O2 Sat by Pulse 97 Oximetry ED Medical Decision Making - Lab Data Result diagrams: 09/01/19 21:30 09/01/19 21:30 - Radiology Data Radiology results: report reviewed, image reviewed Ordering Physician: TANJA SETHI NP Date of Service: 09/01/19 Procedure(s): CT abdomen pelvis wo con Accession Number(s): [id number] cc: TANJA SETHI NP CT ABDOMEN AND PELVIS WITHOUT CONTRAST INDICATION / CLINICAL INFORMATION: MAIN: renal stones with blood in urine RT side flank pain. TECHNIQUE: Axial CT images were obtained through the abdomen and pelvis without IV contrast. All CT scans at this location are performed using CT dose reduction for ALARA by means of automated exposure control. COMPARISON: None available. FINDINGS: LOWER CHEST: 5 mm incidental pulmonary nodule in the right lower lobe as seen on axial series 2 image 10. No acute findings. Calcified granulomas in the lingula. LIVER: No significant abnormality. GALLBLADDER: Multiple calcified gallstones without definite wall thickening or inflammation. BILE DUCTS: No significant abnormality. PANCREAS: No significant abnormality. SPLEEN: No significant abnormality. ADRENALS: No significant abnormality. RIGHT KIDNEY and URETER: No significant abnormality. LEFT KIDNEY and URETER: No significant abnormality. STOMACH and SMALL BOWEL: No significant abnormality. COLON: No significant abnormality. APPENDIX: No significant abnormality. PERITONEUM: No free fluid. No free air. No fluid collection. LYMPH NODES: No significant adenopathy. AORTA and ARTERIES: No significant abnormality. IVC and VEINS: No significant abnormality. URINARY BLADDER: No significant abnormality. REPRODUCTIVE ORGANS: Uterus is absent. No significant adnexal abnormality. ADDITIONAL FINDINGS: None. SKELETAL SYSTEM: No significant abnormality. IMPRESSION: 1. No urinary tract stones or hydronephrosis. 2. No inflammatory process or bowel obstruction. 3. Cholelithiasis. Signer Name: Moreno Pruitt MD Signed: 09/01/2019 11:34 PM Workstation Name: [id number] Transcribed By: PARKER Dictated By: London Pruitt MD Electronically Authenticated By: London Pruitt MD Signed Date/Time: 09/01/194 DD/ 29 TD/TT: - Medical Decision Making ct: Gallstones, no kidney stones. UA: trace: luek, rbc, plan: cipro, omeprazole, naproxen, follow up with GI, follow up with pcp, pt verbalized agreement and understanding of discharge plan. Critical care attestation.: If time is entered above; I have spent that time in minutes in the direct care of this critically ill patient, excluding procedure time. ED Disposition Clinical Impression: Gall stones, Dysuria Disposition: DC-01 TO HOME OR SELFCARE Is pt being admited?: No Does the pt Need Aspirin: No Condition: Stable Instructions: Abdominal Pain (ED), Cholelithiasis (ED), Dysuria (ED) Prescriptions: Ciprofloxacin HCl [Ciprofloxacin TAB] 500 mg PO BID 7 Days #14 tab metroNIDAZOLE [Flagyl] 500 mg PO BID 7 Days #14 tab Omeprazole 20 mg PO DAILY #30 tab. Referrals: PRIMARY CARE, [Primary Care Provider] - 3-5 Days [facility] [Provider Group] - 3-5 Days Forms: Work/School Release Form(ED) Time of Disposition: 23:51
[2019-09-01 21:42] LABS: Hematocrit 40.4 % (30.3-42.9); Hemoglobin 13.7 gm/dl (10.1-14.3); Mean Corpuscular HGB Conc 34 % (30-34); Mean Corpuscular Volume 93 fl (79-97); Platelet Count 389 K/mm3 (140-440); Red Blood Count 4.37 M/mm3 (3.65-5.03); Red Cell Distribution Width 14.2 % (13.2-15.2)
[2019-09-01 22:01] LABS: BUN/Creatinine Ratio 18; Blood Urea Nitrogen 14 mg/dL (7-17); Calcium 9.7 mg/dL (8.4-10.2); Hemolysis Index 9
--- NOTE | 2019-09-01 23:38 | Cat Scan Report ---
CT ABDOMEN AND PELVIS WITHOUT CONTRAST INDICATION / CLINICAL INFORMATION: MAIN: renal stones with blood in urine RT side flank pain. TECHNIQUE: Axial CT images were obtained through the abdomen and pelvis without IV contrast. All CT scans at [facility] location are performed using CT dose reduction for ALARA by means of automated exposure control. COMPARISON: None available. FINDINGS: LOWER CHEST: 5 mm incidental pulmonary nodule in the right lower lobe as seen on axial series 2 image 10. No acute findings. Calcified granulomas in the lingula. LIVER: No significant abnormality. GALLBLADDER: Multiple calcified gallstones without definite wall thickening or inflammation. BILE DUCTS: No significant abnormality. PANCREAS: No significant abnormality. SPLEEN: No significant abnormality. ADRENALS: No significant abnormality. RIGHT KIDNEY and URETER: No significant abnormality. LEFT KIDNEY and URETER: No significant abnormality. STOMACH and SMALL BOWEL: No significant abnormality. COLON: No significant abnormality. APPENDIX: No significant abnormality. PERITONEUM: No free fluid. No free air. No fluid collection. LYMPH NODES: No significant adenopathy. AORTA and ARTERIES: No significant abnormality. IVC and VEINS: No significant abnormality. URINARY BLADDER: No significant abnormality. REPRODUCTIVE ORGANS: Uterus is absent. No significant adnexal abnormality. ADDITIONAL FINDINGS: None. SKELETAL SYSTEM: No significant abnormality. IMPRESSION: 1. No urinary tract stones or hydronephrosis. 2. No inflammatory process or bowel obstruction. 3. Cholelithiasis. Signer Name: Moreno Pruitt MD Signed: 09/01/2019 11:34 PM Workstation Name: [id number]
[2019-09-02 00:05] VITALS: BP 158/67
== END 2019-09-02 00:04 | disposition home or self-care (01) ==
LOC: ED 17:24
DX: K80.20 Calculus of gallbladder without cholecystitis without obstruction (principal); F17.200 Nicotine dependence, unspecified, uncomplicated; Z90.710 Acquired absence of both cervix and uterus; Z79.899 Other long term (current) drug therapy; Z98.890 Other specified postprocedural states
CPT/HCPCS: 36415; 74176; 80048; 81001; 85027; 87086; 96372; 99284; J1885